=== PATIENT | male | born 1975 | race American Indian/Alaskan Native ===

== ENCOUNTER 2016-08-05 08:58 | Observation (INO) | payer BC ==
[~2016-08-05 08:58] MED LIST: ANCEF/STERILE WATER 2 GM/20 ML IV NR
--- NOTE | 2016-08-05 10:34 | Anesthesia Day of Surgery ---
Anesthesia Day of Surgery - Day of Surgery Patient Examined: Yes Patient H&P Reviewed: Yes Patient is NPO: Yes
--- NOTE | 2016-08-05 10:34 | Anesthesia Consultation ---
Anesthesia Consult and Med Hx Date of service: 08/05/16 - Airway Anesthetic Teeth Evaluation: Caps ROM Head & Neck: Adequate Mental/Hyoid Distance: Adequate Mallampati Class: Class II Intubation Access Assessment: Good - Pulmonary Exam CTA: Yes - Cardiac Exam Cardiac Exam: RRR - Pre-Operative Health Status ASA Pre-Surgery Classification: ASA2 Proposed Anesthetic Plan: General - Pulmonary Hx Smoking: Yes (1 PACK PER WEEK X 16 YRS) Hx Sleep Apnea: No (SHANON PRE SCREEN LOW RISK.) - Cardiovascular System Hx Hypertension: No - Hematic Hx Anemia: Yes ( CHILD ONLY) - Other Systems Hx Alcohol Use: Yes (BEER QD) Hx Cancer: No
[2016-08-05 10:36] LABS: Basophils % (Auto) 1.4 % (0.0-1.8); Eosinophils % (Auto) 3.6 % (0.0-4.3); Hematocrit 41.5 % (35.5-45.6); Hemoglobin 13.4 gm/dl (11.8-15.2); Mean Corpuscular HGB Conc 32 % (32-34); Mean Corpuscular Hemoglobin 28 pg (28-32); Mean Corpuscular Volume 88 fl (84-94); Platelet Count 183 K/mm3 (140-440); Red Blood Count 4.73 M/mm3 (3.65-5.03); Red Cell Distribution Width 14.6 % (13.2-15.2); White Blood Count 4.8 K/mm3 (4.5-11.0)
[2016-08-05] MEDS: NACL 0.9% 1000 ML 1,000 ML IV SCH ×2 (10:48→17:49)
[2016-08-05 10:52] LABS: Alanine Aminotransferase 16 units/L (7-56); Albumin 3.6 g/dL (3.9-5); Albumin/Globulin Ratio 1.7 %; Alkaline Phosphatase 60 units/L (35-129); Anion Gap 13 mmol/L; BUN/Creatinine Ratio 8.75; Bilirubin,Total 0.4 mg/dL (0.1-1.2); Blood Urea Nitrogen 7 mg/dL (9-20); Calcium 8.3 mg/dL (8.4-10.2); Carbon Dioxide 26 mmol/L (22-30); Chloride 106.7 mmol/L (98-107); Glucose 98 mg/dL (75-100); Sodium 142 mmol/L (137-145); Total Protein 5.7 g/dL (6.3-8.2)
[2016-08-05] MEDS ORDERED: SUBLIMAZE ONE (10:55)
[2016-08-05] MEDS ORDERED: DIPRIVAN 10 MG/ML IV ONE (10:55)
[2016-08-05] MEDS ORDERED: ZEMURON IV ONE (10:57)
[2016-08-05] MEDS ORDERED: XYLOCAINE MPF 2% ONE (10:57)
[2016-08-05] MEDS ORDERED: PEPCID PO NR (11:00)
[2016-08-05] MEDS ORDERED: VERSED IV NR (11:00)
--- NOTE | 2016-08-05 11:04 | Admit Criteria Form ---
Admission Criteria Documentation: AMBULATORY SURGERY EXCEPTION CRITERIA Ambulatory Surgery Exception Criteria ( Place 'X' for any and all applicable criteria): Surgery or procedure performed on ambulatory basis may require inpatient stay for[A] ANY ONE of the following(1)(2)(3)(4)(5)(6)(7)(8)(9): [X] I. A preoperative situation, condition, or finding that warrants inpatient stay as indicated by ANY ONE of the following: [] a) Inpatient care needed because of severity of a disease or condition rather than the surgery (eg, severe cardiac or respiratory disease, severe infection) (15) (16 ) (17) (18) [] b) Emergent procedure (eg, angioplasty for acute ischemia)(19) [X] c) Complex surgical approach or situation as indicated by ANY ONE of the following(3): [X] i) Open approach needed instead of usual endoscopic, transcatheter, or other less invasive procedure [] ii) Difficult approach because of previous operation [] iii) Airway monitoring required after open neck procedures(20)(21) [] iv) Large mass requiring unusually extensive dissection [] v) Additional complicating feature requiring inpatient care (eg, drain management)(22(23): [] d) Major surgery in a pt with high anesthetic risk as indicated by ANY ONE of the following (2)(3)(5)(7)(8): [] i) ASA risk class III or higher (severe systemic disease impairing function) [D] [] ii) Advanced age (eg, older than 85 years)(14)(24) [] iii) Symptomatic heart failure(25) [] iv) Symptomatic asthma or COPD(8)(21) [] v) Morbid obesity with hemodynamic or respiratory problems(20)( 21)(26)(27) [] vi) Obstructive sleep apnea(20)(21) [] vii) Former premature infants who are younger than 60 weeks [] viii) High risk for severe postoperative abnormalities (eg, severe postoperative hypocalcemia after parathyroidectomy for severe hyperparathyroidism)(27)( 28) [] ix) Unstable angina(25) [] e) Drug-related risk requiring inpatient stay as indicated by ANY ONE of the following(5)(10)(14)(32)(33) [] i) Procedure requires discontinuing drugs or other therapy (eg , antiarrhythmic medication, antiseizure medication), which necessitates inpatient observation or treatment.(18)(31) [] ii) Major surgery and high risk drug use as indicated by ANY ONE of the following: [] 1) Active abuse of cocaine or similar drug [] 2) Monoamine oxidase inhibitor use [] 3) Other drug identified as posing risk [] f) Inadequate outpatient care situation as indicated by ANY ONE of the following(5)(10)(14)(32)(33) [] i) Patient lives remote from medical facility and procedure has urgent complication potential, and temporary nearby residence cannot be arranged [] ii) Patient will have postprocedure incapacitation and inadequate assistance at home, or alternative level of care cannot be arranged. [] iii) Patient will have long general anesthesia or procedure side effect resolution time, and competent person to stay with patient on first postoperative night at home or alternative level of care cannot be arranged. []iv) Other inadequate outpatient situation that cannot be handled by other means [] II. A perioperative event, condition, or finding that warrants inpatient stay as indicated by ANY ONE of the following (1)(2)(3): [] a) Inadequate physiologic recovery: cardiovascular, respiratory, or hemodynamic status not normal or near preoperative baseline(18) [] b) Hemodynamic instability [] c) Patient not alert with near normal or baseline mental status [] d) Temperature not normal or as expected and not appropriate for outpatient treatment of condition [] e) Ambulatory or appropriate activity level status not yet achieved post procedure [E](34)(35)(36) [] f) Operative site not appropriate (eg, unexpected or excessive drainage or bleeding) [] g) Postoperative effects not resolved or adequately managed (eg, significant pain or vomiting not appropriate for outpatient or next level of care)(10)(12) [] h) Complicating features requiring inpatient care as indicated by ANY ONE of the following(37): [] i) Severe complications of procedure (eg, bowel injury, airway compromise, vascular injury,severe hemorrhage) [] ii) Extensive (eg, dissection far beyond usual scope of procedure ) or prolonged (eg, 120 minutes beyond usual) surgery needed requiring inpatient postoperative care [] iii) Conversion to an open or complex procedure that requires inpatient care (eg, open vs laparoscopic cholecystectomy, abdominal vs vaginal hysterectomy)(38) [] iv) Comorbid condition or test result identified during or post procedure that requires inpatient care (7) [] v) Malignant hyperthermia(30) [] vi) Other complicating feature requiring inpatient care(22)(23) Inpatient stay may be needed until ALL of the following are present (1)(2)(3)(4) (5)(6)(10)(14)(33)(40): []a) Physiologic recovery: cardiovascular, respiratory, and hemodynamic status normal or near preoperative baseline []b) Hemodynamic stability []c) Patient alert, with near normal or baseline mental status []d) Temperature appropriate: patient afebrile or temperature appropriate for outpt treatment of condition []e) Activity level appropriate: ambulatory or appropriate activity level post procedure []f) Operative site appropriate as indicated by ALL of the following: []i) Site dry or with expected drainage []ii) Any blood noted is as expected for procedure. []g) Postoperative effects resolved or managed as indicated by ALL of the following: []i) Pain management appropriate for outpatient (or next level of) care(10) []ii) Minimal nausea and vomiting: if present, successfully treated with oral medication(12) []iii) Headache, dizziness, or drowsiness (if present) are mild. []h) Voiding status acceptable as indicated by ANY ONE of the following: []i) Voiding spontaneously []ii) No voiding but instructions given for follow-up in 6 to 8 hours []iii) Urinary catheter in place, and instructions given for follow-up []i) Complicating features requiring inpatient care manageable at a lower level of care(37) []j) Comorbid conditions manageable at a lower level of care(37) The original [employer] content created by [employer] has been revised. The portions of the content which have been revised are identified through the use of italic text or in bold, and [facility] [employer] [place] has neither reviewed nor approved the modified material. All other unmodified content is copyright [employer]. Please see references footnoted in the original [employer] edition 2016 Admission Criteria Met: Yes
[2016-08-05] MEDS ORDERED: MARCAINE 0.5% 30 ML INFILTRATI ONE (11:13)
[2016-08-05] MEDS ORDERED: XYLOCAINE 1% 20 mL ONE (11:15)
[2016-08-05] MEDS ORDERED: NACL 0.9% 1000 ML 1,000 ML ONE (12:49)
[2016-08-05] MEDS ORDERED: ZOFRAN ONE (13:23)
[2016-08-05] MEDS ORDERED: ROBINUL ONE (13:23)
[2016-08-05] MEDS ORDERED: TORADOL ONE (13:23)
[2016-08-05] MEDS ORDERED: NEOSTIGMINE ONE (13:23)
[2016-08-05] MEDS ORDERED: MARCAINE 0.5% INFILTRATI ONE ×2 (13:26)
[2016-08-05] MEDS ORDERED: NACL 0.9% IR ONE (13:26)
[2016-08-05] MEDS ORDERED: XYLOCAINE 1% 20 mL INFILTRATI ONE ×2 (13:26)
[2016-08-05] MEDS ORDERED: DILAUDID ONE ×2 (14:00→14:20)
[2016-08-05] MEDS: DILAUDID IV PRN ×4 (14:15→14:51)
[2016-08-05] MEDS ORDERED: ZOFRAN IV ONE (17:31)
--- NOTE | 2016-08-05 19:45 | Operative Report ---
PREOPERATIVE DIAGNOSES: 1. Recurrent right scrotal hernia. 2. Multiple giant epithelial polyps in the suprapubic area and around the anus. POSTOPERATIVE DIAGNOSES: 1. Recurrent right scrotal hernia. 2. Multiple giant epithelial polyps in the suprapubic area and around the anus.about 2 3 cm each !! SURGERY: 1. Right inguinal hernia repair. 2. Excision of a giant polyp from the suprapubic area for diagnostic purposes. ANESTHESIA: General. BLOOD LOSS: Minimal. FINDINGS: The patient had a large scrotal hernia with a length of good 12 x 5 x 5 cm. I was able to reach its neck area and suture ligated using for that purpose 2-0 Ethibond. Then, the repair was performed between the conjoined tendons medially and the ilioinguinal track laterally. I was very much satisfied with that and not to put any patch there. DESCRIPTION OF PROCEDURE: With the patient in supine position, ____ prepped and draped in usual fashion. I made an incision in the right lower quadrant deep subcutaneous tissue all the way down to fascia, which was incised. I was able to reach the area of the cord that was dissected free, within the cord anteromedially, there is a large sac that is fairly thick. I was able to isolate it completely. It was empty, I did suture ligate it at its neck with use of 2-0 Ethibond. I was very satisfied, then the repair was performed without using any graft. I used the same material 2-0 Ethibond between the conjoined tendon medially and the ilioinguinal tract laterally. I did put a relaxing incision medial to the suture line to relax the tension on the suture line. After that maneuvering, I closed the fascia with the use of continuous stitch of 2-0 Vicryl, the same thing for the subcutaneous tissue using an intracuticular stitch of the same and the bandage. One of those giant epithelial polyps was removed, it is about 2 x 2 with a stalk about 0.5 cm. I had good hemostasis using electrocautery and the bandage. The patient was then transferred to the recovery room in good condition. I gave him prescription for Vicodin, no pushing, no pulling, no driving. To keep the scrotal support and to see me in the office in about 10 days. [facility]# [id number] JUANJOSE/ABBEY PERSON
[2016-08-05] MEDS ORDERED: NORCO 5/325 PO PRN (20:35)
--- NOTE | 2016-08-05 20:55 | Discharge Summary ---
HISTORY OF PRESENT ILLNESS: This man came to my office 2 days ago referred by his family physician from the ER because of severe pain in the right inguinal area, with a mass in the scrotum. He gives a history of hernia repair done when he was 10 years old. The mass has been increasing in size with lots of pain in the area and thus this prompted him to be seen in my office. PHYSICAL EXAMINATION: GENERAL: Examination at this point showed a thin, slim, black male who is in no distress. When he lies down, the mass goes in. HEAD AND NECK: Negative. CHEST: Clear. HEART: Sound normal. ABDOMEN: Protuberant, soft, benign. HOSPITAL COURSE: Multiple giant appearing polyps that could be seen around the base of the penis and the suprapubic area. The hernia could be felt easily in the scrotum, so he underwent repair of hernia without application of a graft and excisional biopsy of one of those giant epithelial polyps and then he was discharged home on Vicodin to see me in my office in about 10 days. I did indicate to him what we did and what we found, him and his as well. JOB# [id number] JUANJOSE/ABBEY
[2016-08-05] MEDS ORDERED: D5W/0.45% NACL/KCL 20 MEQ 20 MEQ/1,000 ML BAG IV SCH (21:00)
[2016-08-06] MEDS: ZOFRAN IV PRN ×2 (00:24→08:26)
[2016-08-06] MEDS: NORCO 5/325 PO PRN ×2 (04:49→09:49)
[2016-08-06 05:22] LABS: Hematocrit 25.2 % (35.5-45.6); Hemoglobin 8.1 gm/dl (11.8-15.2); Mean Corpuscular HGB Conc 32 % (32-34); Mean Corpuscular Hemoglobin 29 pg (28-32); Mean Corpuscular Volume 89 fl (84-94); Platelet Count 160 K/mm3 (140-440); Red Blood Count 2.82 M/mm3 (3.65-5.03); Red Cell Distribution Width 14.8 % (13.2-15.2)
[2016-08-06 05:42] LABS: Anion Gap 17 mmol/L; Blood Urea Nitrogen 12 mg/dL (9-20); Calcium 6.8 mg/dL (8.4-10.2); Carbon Dioxide 21 mmol/L (22-30); Glucose 139 mg/dL (75-100); Potassium 4.4 mmol/L (3.6-5.0); Sodium 139 mmol/L (137-145)
[2016-08-06 06:06] LABS: White Blood Count 26.7 K/mm3 (4.5-11.0)
[2016-08-06 08:11] LABS: Blastocytes % (Manual) 0 %
[2016-08-06 08:12] LABS: Anisocytosis 1+; Basophils % (Manual) 0 % (0.0-1.8); Diff Status Complete; Hypochromasia 1+
[2016-08-06 14:23] VITALS: BP 126/81
== END 2016-08-06 13:00 | disposition home or self-care (01) ==
LOC: OR 08:58 → 2B-SURG 20:20
PROVIDERS: ADMIT Surgery; ATTEND Surgery
DX: K40.91 Unilateral inguinal hernia, without obstruction or gangrene, recurrent (principal); Z98.890 Other specified postprocedural states
CPT/HCPCS: 36415; 49520; 80048; 80053; 85007; 85025; 88302; 88305; 96374; 96375; 96376; 99406; G0378; J0690; J1170; J1885; J2250; J2405; J2704; J2710; J3010; J7030

== ENCOUNTER 2016-08-13 11:23 | Emergency (ER) | payer BC ==
[2016-08-13 12:32] LABS: Basophils % (Auto) 0.3 % (0.0-1.8); Eosinophils % (Auto) 1.8 % (0.0-4.3); Hematocrit 26.2 % (35.5-45.6); Hemoglobin 8.6 gm/dl (11.8-15.2); Mean Corpuscular HGB Conc 33 % (32-34); Mean Corpuscular Hemoglobin 28 pg (28-32); Mean Corpuscular Volume 86 fl (84-94); Platelet Count 545 K/mm3 (140-440); Red Blood Count 3.04 M/mm3 (3.65-5.03); Red Cell Distribution Width 14.3 % (13.2-15.2); White Blood Count 12.9 K/mm3 (4.5-11.0)
[2016-08-13 12:58] LABS: Alanine Aminotransferase 19 units/L (7-56); Albumin 3.3 g/dL (3.9-5); Albumin/Globulin Ratio 0.9 %; Alkaline Phosphatase 72 units/L (35-129); Anion Gap 20 mmol/L; BUN/Creatinine Ratio 22.85; Blood Urea Nitrogen 16 mg/dL (9-20); Calcium 9.4 mg/dL (8.4-10.2); Carbon Dioxide 24 mmol/L (22-30); Chloride 98.4 mmol/L (98-107); Glucose 123 mg/dL (75-100); Lipase 12 units/L (13-60); Potassium 3.6 mmol/L (3.6-5.0); Sodium 139 mmol/L (137-145); Total Protein 7.1 g/dL (6.3-8.2)
[2016-08-13 13:11] LABS: Bilirubin,Urine NEG (Negative); Blood,Urine LG (Negative); Ketones,Urine TR mg/dL (Negative); Leukocyte Esterase,Urine MOD (Negative); Mucus,Urine 2+ /HPF; Nitrite,Urine NEG (Negative)
[2016-08-13] MEDS ORDERED: BACTRIM DS PO ONE (17:15)
[2016-08-13 18:22] VITALS: BP 115/67
[2016-08-13] MEDS ORDERED: SILVER NITRATE TP ONE (18:38)
--- NOTE | 2016-08-13 19:07 | Emergency Department Report ---
- General Chief Complaint: Abdominal Pain Stated Complaint: S/P HERNIA SURGERY/PAIN/URINE BROWN Time Seen by Provider: 08/13/16 16:13 Source: patient Mode of arrival: Ambulatory Limitations: No Limitations - History of Present Illness Onset/Timin -: days(s) Location: abdomen Place: home Patient Tetanus UTD: Yes Context: other (from prior inguinal hernia ) Associated Symptoms: denies: pain, loss of feeling/numbness, suspect foreign body present, unable to move injured part, weakness followed by dizziness, nausea/vomiting - Related Data Previous Rx's Medication Instructions Recorded Last Taken Type HYDROcodone/ACETAMINOPHEN [Vicodin 1 tab PO Q6HR PRN #20 tablet 08/05/16 Unknown Rx HP 10-300 mg TAB] HYDROcodone/ACETAMINOPHEN [Vicodin 1 tab PO Q6HR PRN #20 tablet 08/05/16 Unknown Rx HP 10-300 mg TAB] Diclofenac Potassium 50 mg PO BID #20 tablet 08/13/16 Unknown Rx Sulfamethoxazole/Trimethoprim 1 each PO BID #20 tablet 08/13/16 Unknown Rx [Bactrim DS TAB] Allergies Allergy/AdvReac Type Severity Reaction Status Date / Time No Known Allergies Allergy Verified 08/13/16 11:28 ED Review of Systems ROS: Stated complaint: S/P HERNIA SURGERY/PAIN/URINE BROWN Other details as noted in HPI Constitutional: denies: chills, fever Eyes: denies: eye pain, eye discharge, vision change ENT: denies: ear pain, throat pain Respiratory: denies: cough, shortness of breath, wheezing Cardiovascular: denies: chest pain, palpitations Endocrine: no symptoms reported Gastrointestinal: denies: abdominal pain, nausea, diarrhea Genitourinary: denies: urgency, dysuria Musculoskeletal: denies: back pain, joint swelling, arthralgia Skin: denies: rash, lesions Neurological: denies: headache, weakness, paresthesias Psychiatric: denies: anxiety, depression Hematological/Lymphatic: denies: easy bleeding, easy bruising ED Past Medical Hx - Past Medical History Hx Hypertension: No Hx Congestive Heart Failure: No Hx Diabetes: No Hx Asthma: No Hx COPD: No Hx HIV: No - Surgical History Additional Surgical History: hernia repair - Social History Smoking Status: Current Some Day Smoker Substance Use Type: Alcohol - Medications Home Medications: Home Medications Medication Instructions Recorded Confirmed Last Taken Type HYDROcodone/ACETAMINOPHEN [Vicodin 1 tab PO Q6HR PRN #20 tablet 08/05/16 Unknown Rx HP 10-300 mg TAB] HYDROcodone/ACETAMINOPHEN [Vicodin 1 tab PO Q6HR PRN #20 tablet 08/05/16 Unknown Rx HP 10-300 mg TAB] Diclofenac Potassium 50 mg PO BID #20 tablet 08/13/16 Unknown Rx Sulfamethoxazole/Trimethoprim 1 each PO BID #20 tablet 08/13/16 Unknown Rx [Bactrim DS TAB] ED Physical Exam - General Limitations: No Limitations General appearance: alert, in no apparent distress - Head Head exam: Present: atraumatic, normocephalic - Eye Eye exam: Present: normal appearance - ENT ENT exam: Present: mucous membranes moist - Neck Neck exam: Present: normal inspection - Respiratory Respiratory exam: Present: normal lung sounds bilaterally. Absent: respiratory distress - Cardiovascular Cardiovascular Exam: Present: regular rate, normal rhythm. Absent: systolic murmur, diastolic murmur, rubs, gallop - GI/Abdominal GI/Abdominal exam: Present: soft, normal bowel sounds - Rectal Rectal exam: Present: deferred - Extremities Exam Extremities exam: Present: normal inspection - Back Exam Back exam: Present: normal inspection - Neurological Exam Neurological exam: Present: alert, oriented X3 - Psychiatric Psychiatric exam: Present: normal affect, normal mood - Skin Skin exam: Present: warm, dry, intact, normal color, other (wound in right inguinal region , looks well healed , no erythema mild tenderness to palpation , there is a 0.5 cm area of active bleeding in the middle third of the wound). Absent: rash ED Course Vital Signs 08/13/16 08/13/16 08/13/16 11:30 16:20 17:34 Temperature 99 F 98.1 F Pulse Rate 128 H 78 Respiratory 18 16 16 Rate Blood Pressure 134/87 Blood Pressure 115/67 [Left] O2 Sat by Pulse 100 100 100 Oximetry ED Medical Decision Making - Lab Data Result diagrams: 08/13/16 11:58 08/13/16 11:58 Critical care attestation.: If time is entered above; I have spent that time in minutes in the direct care of this critically ill patient, excluding procedure time. ED Disposition Clinical Impression: Cellulitis Disposition: DISCHARGED TO HOME OR SELFCARE Is pt being admited?: No Does the pt Need Aspirin: No Condition: Good Instructions: Cellulitis (ED) Prescriptions: Diclofenac Potassium 50 mg PO BID #20 tablet Sulfamethoxazole/Trimethoprim [Bactrim DS TAB] 1 each PO BID #20 tablet Referrals: PRIMARY CARE, [Primary Care Provider] - 3-5 Days Forms: Work/School Release Form(ED) Time of Disposition: 19:04
--- NOTE | 2016-08-14 09:53 | XRay Report ---
ABDOMEN, 2 views: History: Abdominal pain. There are scattered small air-fluid levels throughout the abdomen on the upright view. No dilated bowel, free air or pathologic calcifications. The lung bases are clear. IMPRESSION: Scattered small fluid levels which could be related to gastroenteritis.
== END 2016-08-13 19:42 | disposition home or self-care (01) ==
LOC: ED 11:23
DX: L03.311 Cellulitis of abdominal wall (principal); F17.200 Nicotine dependence, unspecified, uncomplicated
CPT/HCPCS: 36415; 74020; 80053; 81001; 83690; 85025; 99284